=== PATIENT | female | born 1955 | race Asian ===

== ENCOUNTER 2018-06-17 05:55 | Day surgery (SDC) | payer OTHER ==
[2018-06-17] MEDS ORDERED: LACTATED RINGERS 1,000 ML IV ONE (06:41)
[2018-06-17] MEDS ORDERED: MIDAZOLAM 2 MG/2 ML VIAL IVP ONE (07:30)
[2018-06-17] MEDS ORDERED: fentaNYL 100 MCG/2 ML VIAL IVP ONE (07:30)
[2018-06-17 08:05] VITALS: BP 102/70
== END 2018-06-17 05:56 | disposition home or self-care (01) ==
LOC: SDS 05:55
PROVIDERS: ATTEND Surgery
PROC: 0DBN8ZZ Excision of Sigmoid Colon, Via Natural or Artificial Opening Endoscopic (ICD-10-PCS; principal; 2018-06-17 07:30)
DX: Z12.11 Encounter for screening for malignant neoplasm of colon (principal); D12.5 Benign neoplasm of sigmoid colon; K64.8 Other hemorrhoids; I10 Essential (primary) hypertension; E78.5 Hyperlipidemia, unspecified; E11.9 Type 2 diabetes mellitus without complications; F17.210 Nicotine dependence, cigarettes, uncomplicated
CPT/HCPCS: 45380; J7120

== ENCOUNTER 2019-08-13 11:31 | Emergency (ER) | payer OTHER, MEDICAID ==
[2019-08-13 12:00] LABS: BASOPHILS % (AUTO) 0.2 %; EOSINOPHILS % (AUTO) 0.1 %; HGB - HEMOGLOBIN 17.3 g/dL (12.0-16.0); LYMPHOCYTES # (AUTO) 3.5 10^3/uL (1.5-3.5); LYMPHOCYTES % (AUTO) 21.5 %; MEAN CORPUSCULAR HEMOGLOBIN 27.5 pg (27.0-31.0); MEAN CORPUSCULAR HGB CONC 34.2 g/dL (32.0-36.0); MEAN CORPUSCULAR VOLUME 80.6 fL (81.0-99.0); MEAN PLATELET VOLUME 9.3 fL (7.9-10.8); MONOCYTES # (AUTO) 0.9 10^3/uL (0.0-1.0); MONOCYTES % (AUTO) 5.5 %; NEUTROPHILS # (AUTO) 11.7 10^3/uL (1.5-6.6); NEUTROPHILS % (AUTO) 72.1 %; PLT - PLATELET COUNT 338 10^3/uL (130-450); RED BLOOD COUNT 6.28 10^6/uL (4.20-5.40); RED CELL DISTRIBUTION WIDTH 13.3 % (12.0-15.0); WHITE BLOOD COUNT 16.2 x10^3/uL (4.8-10.8)
[2019-08-13 12:12] LABS: ALBUMIN 5.2 g/dL (3.2-5.5); ALBUMIN/GLOBULIN RATIO 1.7 (1.0-2.2); BILIRUBIN,TOTAL 0.6 mg/dL (0.2-1.0); CALCIUM 9.7 mg/dL (8.5-10.3); CREATININE 0.8 mg/dL (0.4-1.0); TOTAL PROTEIN 8.3 g/dL (6.7-8.2)
[2019-08-13 12:17] LABS: BILIRUBIN,URINE NEGATIVE (NEGATIVE); GLUCOSE, URINE (UA) NEGATIVE (NEGATIVE); KETONES,URINE (UA) NEGATIVE (NEGATIVE); LEUKOCYTE ESTERASE, URINE SMALL (NEGATIVE); NITRITE,URINE NEGATIVE (NEGATIVE); OCCULT BLOOD,URINE TRACE-INTA (NEGATIVE); PH,URINE 5.5 PH (5.0-7.5); PROTEIN,URINE TRACE mg/dL (NEGATIVE); UROBILINOGEN,URINE 0.2 (NORMAL) E.U./dL (NORMAL)
[2019-08-13 12:18] LABS: CLARITY,URINE CLOUDY (CLEAR)
[2019-08-13 12:33] LABS: AMORPHOUS SEDIMENT,UR Rare /LPF; BACTERIA,URINE Many /HPF (None Seen); RBC,URINE 0-5 /HPF (0-5); SQUAMOUS EPITHELIAL CELL,UR MOD Squamous (<= Few)
[2019-08-13] MEDS ORDERED: IOVERSOL 320 100 ML VIAL IVP ONE ×2 (15:19→15:31)
--- NOTE | 2019-08-13 15:57 | CT Report ---
Reason: LLQ pain/tenderness, vomiting Procedure Date: 08/13/2019 Accession Number: [id number] / [id number] Procedure: CT - Abdomen/Pelvis W CPT Code: Final Report FULL RESULT: EXAM: CT ABDOMEN AND PELVIS EXAM DATE: 08/13/2019 03:30 PM. CLINICAL HISTORY: Left lower quadrant pain, tenderness and vomiting. COMPARISONS: None. TECHNIQUE: Routine helical CT imaging was performed through the abdomen and pelvis. IV contrast: 100 cc Optiray 320. Enteric contrast: No. Reconstructions: Coronal and sagittal. In accordance with CT protocol optimization, one or more of the following dose reduction techniques were utilized for this exam: automated exposure control, adjustment of mA and/or KV based on patient size, or use of iterative reconstructive technique. FINDINGS: Lung Bases: Unremarkable. Liver: The liver parenchyma is moderately hypodense diffusely suggesting fatty infiltration. No focal masses identified. Gallbladder/Bile Ducts: Unremarkable. Spleen: Normal. Pancreas: Normal. Adrenal Glands: Normal. Kidneys: No calculi or hydronephrosis evident. The renal pelvises are mildly prominent bilaterally but no hydroureter evident. No solid mass lesions identified. Peritoneal Cavity/Bowel: A small number of distal clonic diverticula present but no evidence for acute diverticulitis, colitis or other inflammatory process. Stool volume is within normal limits. No bowel obstruction evident. No free fluid or adenopathy. The appendix is well visualized and normal. Pelvic Organs: A large well-circumscribed lobulated mass with one small peripheral calcification present in the anterior mid to left pelvis measuring 10.6 x 7.1 x 9.2 cm. It contacts the anterior uterine fundus and could represent a large pedunculated subserosal fibroid. However, it also contacts the region of the left adnexa and adnexal lesion may also be considered. The right adnexa is unremarkable. Additionally, there is a partially calcified nodule within the anterior uterine fundus likely impinging upon the endometrium measuring 2.3 cm, likely degenerated submucosal fibroid. Vasculature: No aneurysms or other significant abnormality. Bones: No acute fracture or bone lesion evident. There is moderate disk space narrowing and degenerative disk disease at L5-S1 with a disk osteophyte complex extending asymmetrically into the left L5-S1 neuroforamen causing significant stenosis. Other: None. IMPRESSION: 1. No bowel obstruction, constipation or acute inflammatory process evident. Mild distal clonic diverticulosis noted. 2. Large lobulated mid to left pelvic mass, most likely a pedunculated subserosal fibroid, less likely left adnexal mass, measuring up to 10.6 cm. Further evaluation with pelvic ultrasound suggested. If it remains indeterminate, pelvic contrast MRI could also be considered. A normal left ovary is not well visualized. 3. Additional probable degenerated and calcified submucosal right fundal uterine fibroid noted. 4. Moderate hepatic fatty infiltration. 5. Moderate L5-S1 degenerative disk disease with moderate to severe left L5-S1 neuroforaminal stenosis. RADIA
--- NOTE | 2019-08-13 18:19 | Ultrasound Report ---
Reason: pelvic pain, R Procedure Date: 08/13/2019 Accession Number: [id number] / [id number] Procedure: US - Pelvic w/Transvag+Doppler Comp CPT Code: Final Report FULL RESULT: EXAM: PELVIC ULTRASOUND WITH DOPPLERS CLINICAL HISTORY: Right pelvic pain. COMPARISON: ABDOMEN/PELVIS W/ 08/13/2019 3:26 PM TECHNIQUE: Realtime transabdominal imaging performed to identify the uterus and adnexa and as an overview of other pelvic structures, followed by transvaginal imaging for better assessment of the endometrium and adnexa, with static image documentation. Color flow imaging and Doppler spectral analysis was performed to evaluate blood flow to the ovaries given pelvic pain and clinical concern for ovarian torsion. FINDINGS: Uterus: 9.4 x 3.4 x 4.9 cm, volume 81.5 cc. Anteverted position. There is an intramural calcified mass. Masses: Left fundal intramural mass with calcifications measuring 2.9 x 3.2 x 2.6 cm. Endometrium: 3.9 mm. Not well seen secondary to calcified uterine mass. Cervix: Unremarkable. Right Ovary: 2.1 x 1.5 x 2.0 cm, volume 3.1 cc. Not well seen. Arterial blood flow is visualized. PSV 3 cm/sec. RI 0.5. Adnexa are unremarkable. Left Ovary: A left ovary is not visualized secondary to a large left adnexal mass. There is a large mass which appears hypoechoic and difficult to penetrate with ultrasound. This mass measures 10.8 x 7.9 x 7.6 cm and volume of 337 cc. No overt vascularity within this mass. Free Fluid: None. Other: There is debris within the urinary bladder. IMPRESSION: 1. Very large left pelvic or adnexal mass measuring 10.8 cm in diameter. Differential diagnosis including solid ovarian neoplasm, mesenteric mass, with large pedunculated fibroid less likely but not excluded. 2. A left ovary is not visualized secondary to the large mass or is the large mass. 3. Calcified intramural uterine fibroid. 4. A structure in the right pelvis is visualized, probably representing a right ovary which is normal in size and contains arterial blood flow. Not well characterized. RADIA
[2019-08-13 19:24] VITALS: BP 156/81
--- NOTE | 2019-08-13 20:07 | ED Physician Documentation ---
PD HPI ABD PAIN - Stated complaint Stated Complaint: L SIDE ABD PX/SENT BY - Chief complaint Chief Complaint: Abd Pain - History obtained from History obtained from: Patient, Family - Additional information Additional information: Patient comes emergency department complaining of vomiting for the last approximately 1 day and left lower quadrant abdominal pain. Patient states her symptoms started last night. She cannot feel nauseated and began vomiting and then developed a pain in her left lower quadrant. Patient states that she was seen in clinic earlier today and told she should come to the emergency department for CT scan, due to concerns of her abdominal pain. Patient denies fevers or chills. No dysuria. No hematuria. No vaginal symptoms. Patient states that she does not have any chest symptoms. No shortness of breath or cough. No other complaints at this time. No one else has been sick at home. Review of Systems Ten Systems: 10 systems reviewed and negative Constitutional: reports: Reviewed and negative Eyes: reports: Reviewed and negative Ears: reports: Reviewed and negative Nose: reports: Reviewed and negative Throat: reports: Reviewed and negative Cardiac: reports: Reviewed and negative Respiratory: reports: Reviewed and negative GI: reports: Abdominal Pain, Nausea, Vomiting : reports: Reviewed and negative Skin: reports: Reviewed and negative Musculoskeletal: reports: Reviewed and negative Neurologic: reports: Reviewed and negative Psychiatric: reports: Reviewed and negative Endocrine: reports: Reviewed and negative Immunocompromised: reports: Reviewed and negative PD PAST MEDICAL HISTORY - Past Medical History Cardiovascular: Hypertension, High cholesterol Respiratory: None Endocrine/Autoimmune: None GI: None : None HEENT: None Psych: None Musculoskeletal: None Derm: Other - Past Surgical History 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 - Present Medications Home Medications: Ambulatory Orders Medication Instructions Recorded Confirmed Aspirin 81 mg PO DAILY 06/14/18 06/17/18 Metoprolol Succinate 100 mg PO DAILY 06/14/18 06/17/18 Fenofibrate 50 mg PO 08/13/19 Hydrocodone/Acetaminophen 1 - 2 each PO Q6H PRN #14 tablet 08/13/19 [Hydrocodon-Acetaminophen 5-325] Ondansetron Odt [Zofran] 4 mg TL Q6H PRN #10 tablet 08/13/19 amLODIPine [Norvasc] 5 mg PO ONCE 08/13/19 08/13/19 metFORMIN [Glucophage] 2,000 08/13/19 - Allergies Allergies/Adverse Reactions: Allergies Allergy/AdvReac Type Severity Reaction Status Date / Time No Known Drug Allergies Allergy Verified 08/13/19 11:40 PD ED PE NORMAL - Vitals Vital signs reviewed: Yes - General General: Alert and oriented X 3, No acute distress - HEENT HEENT: Atraumatic, PERRL, EOMI - Neck Neck: Supple, no meningeal sign - Cardiac Cardiac: RRR, No murmur - Respiratory Respiratory: No respiratory distress, Clear bilaterally - Abdomen Abdomen: Soft, Non distended, Other (Moderate tenderness left lower quadrant, no rebound or guarding.) - Derm Derm: Normal color, Warm and dry, No rash - Extremities Extremities: No deformity - Neuro Neuro: Alert and oriented X 3, 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, No motor deficit, No sensory deficit, Normal speech - Psych Psych: Normal mood, Normal affect Results - Vitals Vitals: Vital Signs - 24 hr 08/13/19 08/13/19 08/13/19 11:37 14:31 16:33 Temperature 36.7 C Heart Rate 125 H 110 H 112 H Respiratory 18 16 14 Rate Blood Pressure 137/88 H 150/88 H 133/74 H O2 Saturation 96 98 98 08/13/19 08/13/19 18:17 19:23 Temperature Heart Rate 116 H 114 H Respiratory 16 18 Rate Blood Pressure 120/69 156/81 H O2 Saturation 97 97 Oxygen O2 Source Room air - Labs Labs: Laboratory Tests 08/13/19 08/13/19 08/13/19 11:44 11:52 11:52 WBC 16.2 H RBC 6.28 H Hgb 17.3 H Hct 50.6 H MCV 80.6 L MCH 27.5 MCHC 34.2 RDW 13.3 Plt Count 338 MPV 9.3 Neut # (Auto) 11.7 H Lymph # (Auto) 3.5 [place] # (Auto) 0.9 Eos # (Auto) 0.0 Baso # (Auto) 0.0 Absolute Nucleated RBC 0.00 Nucleated RBC % 0.0 Sodium 136 Potassium 3.6 Chloride 101 Carbon Dioxide 21 Anion Gap 14.0 H BUN 19 Creatinine 0.8 Estimated GFR (MDRD) 73 L Glucose 182 H Calcium 9.7 Total Bilirubin 0.6 AST 22 ALT 25 Alkaline Phosphatase 48 Total Protein 8.3 H Albumin 5.2 Globulin 3.1 Albumin/Globulin Ratio 1.7 Lipase 33 Urine Color YELLOW Urine Clarity CLOUDY Urine pH 5.5 Ur Specific [place] >=1.030 H Urine Protein TRACE Urine Glucose (UA) NEGATIVE Urine Ketones NEGATIVE Urine Occult Blood TRACE-INTA Urine Nitrite NEGATIVE Urine Bilirubin NEGATIVE Urine Urobilinogen 0.2 (NORMAL) Ur Leukocyte Esterase SMALL H Urine RBC 0-5 Urine WBC 6-10 H Ur Squamous Epith Cells MOD Squamous H Amorphous Sediment Rare Urine Bacteria Many H Ur Microscopic Review INDICATED Urine Culture Comments NOT INDICATED - Rads (name of study) CT abdomen and pelvis Radiology: Final report received, EMP read indepedently, See rad report (Final radiologist impression: No bowel obstruction, constipation, or acute amatory process evident. Mild distal colonic diverticulosis noted. Large lobulated mid to left pelvic mass most likely a pedunculated subserosal fibroid, less likely left adnexal mass. Further evaluation with pelvic ultrasound suggested. Additional probable degenerated and calcified submucosal right fundal uterine fibroid noted. Moderate hepatic fatty infiltration. Moderate L5-S1 degenerative disc disease with moderate to severe left L5-S1 neuroforaminal stenosis.) Pelvic ultrasound Radiology: Final report received, See rad report (Final radiologist impression: Very large left pelvic or adnexal mass measuring 10.8 cm in diameter. Differential diagnosis including solid ovarian neoplasm, mesenteric mass, with large pedunculated fibroid less likely but not excluded. A left ovary is not visualized secondary to the large mass or is the large mass. Calcified intramural intrauterine fibroid. A structure in the right pelvis is visualized probably representing the right ovary which is normal in size and contains arterial blood flow. Not well characterized.) PD MEDICAL DECISION MAKING - ED course Complexity details: reviewed results, re-evaluated patient, considered differential, d/w patient, d/w family ED course: The patient was worked up with labs, and CT scan, and ultimately, pelvic ultrasound. She was found to have a large left-sided mass associated with either the adnexa or the uterus. It was unclear whether this was benign or malignant, based on somewhat conflicting CT and ultrasound radiologist Opinions in the reports. I discussed with the patient that at this point in time, I it is not known for sure whether this is a malignant mass, and as such, it is extremely important that she follows up in an expedited fashion with gynecology for further evaluation. I have referred her to the women's clinic in [place], and patient may see Dr. Bean or 1 of her associates. The patient is agreeable to this plan. No other urgent or emergent finding has been identified. I discussed with the patient that she may have 1 of the many viral gastroenteritis is that are going around. She Was likely has pain in the area of the left lower abdomen because of the vomiting putting traction on the mass. However, there is no evidence of a torsion of the mass at this point in time. I will give the patient Zofran and Vicodin to take at home. Departure - Departure Disposition: Home, Self Care Clinical Impression: Pelvic mass in female Condition: Fair Instructions: Abdominal Pain Follow-Up: Serina Bean MD [Physician No Access] - Prescriptions: Hydrocodone/Acetaminophen [Hydrocodon-Acetaminophen 5-325] 1 - 2 each PO Q6H PRN #14 tablet PRN Reason: pain Ondansetron Odt [Zofran] 4 mg TL Q6H PRN #10 tablet PRN Reason: Nausea / Vomiting Comments: Your ultrasound and CT scan show a large mass in your left pelvis. This could be a benign or cancerous tumor, but it needs to be followed up and further evaluated. The sooner you can follow-up with about this, the better. Please call first thing tomorrow to make an appointment to follow-up. Discharge Date/Time: 08/13/19 19:38
== END 2019-08-13 19:38 | disposition home or self-care (01) ==
LOC: ED 11:31
DX: R19.04 Left lower quadrant abdominal swelling, mass and lump (principal); R11.2 Nausea with vomiting, unspecified; D25.1 Intramural leiomyoma of uterus; K76.0 Fatty (change of) liver, not elsewhere classified; M51.37 Other intervertebral disc degeneration, lumbosacral region; M48.07 Spinal stenosis, lumbosacral region; I10 Essential (primary) hypertension; Z79.82 Long term (current) use of aspirin
CPT/HCPCS: 36415; 74177; 76830; 76856; 80053; 81001; 83690; 85025; 93975; 99284; Q9967; 81003; 87086

== ENCOUNTER 2020-02-11 08:00 | Outpatient (CLI) | payer OTHER, MEDICAID ==
[2020-02-11 12:22] LABS: BASOPHILS # (AUTO) 0.1 10^3/uL (0.0-0.1); BASOPHILS % (AUTO) 0.6 %; EOSINOPHILS # (AUTO) 0.2 10^3/uL (0.0-0.7); EOSINOPHILS % (AUTO) 1.6 %; HGB - HEMOGLOBIN 15.9 g/dL (12.0-16.0); LYMPHOCYTES # (AUTO) 3.6 10^3/uL (1.5-3.5); LYMPHOCYTES % (AUTO) 36.3 %; MEAN CORPUSCULAR HEMOGLOBIN 27.6 pg (27.0-31.0); MEAN CORPUSCULAR HGB CONC 33.1 g/dL (32.0-36.0); MEAN CORPUSCULAR VOLUME 83.2 fL (81.0-99.0); MEAN PLATELET VOLUME 9.6 fL (7.9-10.8); MONOCYTES # (AUTO) 0.8 10^3/uL (0.0-1.0); MONOCYTES % (AUTO) 7.5 %; NEUTROPHILS # (AUTO) 5.3 10^3/uL (1.5-6.6); NEUTROPHILS % (AUTO) 53.6 %; PLT - PLATELET COUNT 311 10^3/uL (130-450); RED BLOOD COUNT 5.77 10^6/uL (4.20-5.40); RED CELL DISTRIBUTION WIDTH 13.4 % (12.0-15.0)
[2020-02-11 12:37] LABS: HEMOGLOBIN A1c% 7.9 % (4.27-6.07)
[2020-02-11 13:04] LABS: CREATININE,URINE 75.9 mg/dL; MICROALBUM/CREATININE RATIO,UR 114.6 ug/mg (<30.0); MICROALBUMIN,URINE 8.7 mg/dL (0-300.0)
[2020-02-11 13:15] LABS: BUN - BLOOD UREA NITROGEN 22 mg/dL (6-20); CALCIUM 9.5 mg/dL (8.5-10.3); CARBON DIOXIDE - CO2 22 mmol/L (21-32); CHLORIDE 107 mmol/L (101-111); CHOL/HDL RATIO 3.9 (<4.4); CHOLESTEROL 203 mg/dL; CREATININE 0.7 mg/dL (0.4-1.0); GLUCOSE 123 mg/dL (70-100); HDL CHOLESTEROL 52 mg/dL; LDL CHOLESTEROL,CALCULATED 121 mg/dL; LDL/HDL RATIO 2.3 (<4.4); SODIUM 138 mmol/L (135-145); VLDL CHOLESTEROL 30 mg/dL
== END 2020-02-11 23:59 | disposition home or self-care (01) ==
LOC: LAB.WCP 08:00
PROVIDERS: ATTEND Family Medicine
DX: E11.9 Type 2 diabetes mellitus without complications (principal); I10 Essential (primary) hypertension
CPT/HCPCS: 36415; 80048; 80061; 82043; 82570; 83036; 83721; 84443; 85025

== ENCOUNTER 2020-05-14 08:00 | Outpatient (CLI) | payer OTHER, MEDICAID ==
[2020-05-14 13:25] LABS: BUN - BLOOD UREA NITROGEN 22 mg/dL (6-20); CALCIUM 9.8 mg/dL (8.5-10.3); CARBON DIOXIDE - CO2 22 mmol/L (21-32); CHLORIDE 105 mmol/L (101-111); CHOL/HDL RATIO 4.4 (<4.4); CHOLESTEROL 222 mg/dL; CREATININE 0.8 mg/dL (0.4-1.0); GLUCOSE 152 mg/dL (70-100); HDL CHOLESTEROL 51 mg/dL; LDL CHOLESTEROL,CALCULATED 141 mg/dL; LDL/HDL RATIO 2.8 (<4.4); SODIUM 139 mmol/L (135-145); VLDL CHOLESTEROL 30 mg/dL
[2020-05-14 13:32] LABS: CREATININE,URINE 142.2 mg/dL; MICROALBUM/CREATININE RATIO,UR 24.6 ug/mg (<30.0); MICROALBUMIN,URINE 3.5 mg/dL (0-300.0)
[2020-05-14 13:43] LABS: HEMOGLOBIN A1c% 7.2 % (4.27-6.07)
== END 2020-05-14 08:01 | disposition home or self-care (01) ==
LOC: LAB.WCP 08:00
PROVIDERS: ATTEND Physician Assistant
DX: E11.9 Type 2 diabetes mellitus without complications (principal); E78.5 Hyperlipidemia, unspecified
CPT/HCPCS: 36415; 80048; 80061; 82043; 82570; 83036; 83721

== ENCOUNTER 2020-07-29 10:19 | Outpatient (CLI) | payer OTHER, MEDICAID ==
--- NOTE | 2020-07-30 13:02 | Mammography Report ---
BILATERAL DIGITAL SCREENING MAMMOGRAM 3D/2D: 07/29/2020 CLINICAL: Baseline exam. Routine screening. No prior exams were available for comparison. The tissue of both breasts is predominantly fatty. No significant masses, calcifications, or other findings are seen in either breast. IMPRESSION: NEGATIVE There is no mammographic evidence of malignancy. A 1 year screening mammogram is recommended. This exam was interpreted at Station ID: [id number]. NOTE: For mammograms, a report in lay terms will be sent to the patient. Approximately 15% of breast malignancies will not be visualized mammographically. In the management of a palpable breast mass, a negative mammogram must not discourage biopsy of a clinically suspicious lesion. Electronically Signed By: Donnell Andersen acr/penrad:07/29/2020 13:09:28 ACR BI-RADS Category 1: Negative 3341F PARENCHYMAL PATTERN: (F) - The breast(s) demonstrate(s) diffuse fatty replacement. BI-RADS CATEGORY: (1) - 1 RECOMMENDATION: (ANNUAL) - Recommend routine annual screening mammography. [id number] 1 year screening LATERALITY: (B)
== END 2020-07-29 10:20 | disposition home or self-care (01) ==
LOC: DI.N 10:19
PROVIDERS: ATTEND Internal Medicine
DX: Z12.31 Encounter for screening mammogram for malignant neoplasm of breast (principal)

== ENCOUNTER 2020-10-08 08:00 | Outpatient (CLI) | payer OTHER, MEDICAID ==
[2020-10-08 13:16] LABS: ALBUMIN 4.6 g/dL (3.2-5.5); ALBUMIN/GLOBULIN RATIO 1.8 (1.0-2.2); ALKALINE PHOSPHATASE 63 IU/L (42-121); ALT ALANINE AMINOTRANSFERASE 23 IU/L (10-60); AST ASPARTATE AMINOTRANSFERASE 22 IU/L (10-42); BILIRUBIN,TOTAL 0.7 mg/dL (0.2-1.0); BUN - BLOOD UREA NITROGEN 18 mg/dL (6-20); CALCIUM 9.4 mg/dL (8.5-10.3); CARBON DIOXIDE - CO2 26 mmol/L (21-32); CHLORIDE 105 mmol/L (101-111); CHOL/HDL RATIO 2.7 (<4.4); CHOLESTEROL 166 mg/dL; CREATININE 0.7 mg/dL (0.4-1.0); GFR - MDRD 85 (>89); GLUCOSE 174 mg/dL (70-100); HDL CHOLESTEROL 62 mg/dL; LDL CHOLESTEROL,CALCULATED 84 mg/dL; LDL/HDL RATIO 1.4 (<4.4); POTASSIUM 4.3 mmol/L (3.5-5.0); SODIUM 141 mmol/L (135-145); TOTAL PROTEIN 7.2 g/dL (6.7-8.2); TRIGLYCERIDES 100 mg/dL; VLDL CHOLESTEROL 20 mg/dL
[2020-10-08 13:26] LABS: ESTIMATED AVERAGE GLUCOSE 180 mg/dL (70-100); HEMOGLOBIN A1c% 7.9 % (4.27-6.07)
== END 2020-10-08 23:59 | disposition home or self-care (01) ==
LOC: LAB.WCP 08:00
PROVIDERS: ATTEND Internal Medicine
DX: E11.9 Type 2 diabetes mellitus without complications (principal)
CPT/HCPCS: 36415; 80053; 80061; 83036; 83721

== ENCOUNTER 2020-10-14 08:00 | Outpatient (CLI) | payer OTHER, MEDICAID ==
[2020-10-14 17:54] LABS: ALBUMIN 4.7 g/dL (3.2-5.5); ALKALINE PHOSPHATASE 72 IU/L (42-121); ALT ALANINE AMINOTRANSFERASE 27 IU/L (10-60); AST ASPARTATE AMINOTRANSFERASE 26 IU/L (10-42); BILIRUBIN,TOTAL 0.7 mg/dL (0.2-1.0); TOTAL PROTEIN 7.8 g/dL (6.7-8.2)
[2020-10-14 18:47] LABS: BILIRUBIN,DIRECT < 0.1 mg/dL (0.1-0.5)
[2020-10-15 12:51] LABS: HEPATITIS A AB TOTAL(IMMUNITY) REACTIVE (NON-REACTIVE); HEPATITIS B CORE AB TOTAL NON-REACTIVE (NON-REACTIVE); HEPATITIS B SURFACE ANTIGEN NON-REACTIVE (NON-REACTIVE); HEPATITIS C ANTIBODY NON-REACTIVE (NON-REACTIVE)
== END 2020-10-14 23:59 | disposition home or self-care (01) ==
LOC: LAB.WCP 08:00
PROVIDERS: ATTEND Internal Medicine
DX: Z20.5 Contact with and (suspected) exposure to viral hepatitis (principal)
CPT/HCPCS: 36415; 80076; 86317; 86704; 86708; 86803; 87340

== ENCOUNTER 2021-01-21 07:39 | Outpatient (CLI) | payer OTHER, MEDICAID ==
[2021-01-21 12:19] LABS: CALCIUM 9.5 mg/dL (8.5-10.3); CREATININE 0.8 mg/dL (0.4-1.0); POTASSIUM 4.1 mmol/L (3.5-5.0)
[2021-01-21 12:26] LABS: ESTIMATED AVERAGE GLUCOSE 169 mg/dL (70-100); HEMOGLOBIN A1c% 7.5 % (4.27-6.07)
[2021-01-21 12:28] LABS: CREATININE,URINE 107.6 mg/dL; MICROALBUM/CREATININE RATIO,UR 35.3 ug/mg (<30.0); MICROALBUMIN,URINE 3.8 mg/dL (0-300.0)
== END 2021-01-21 23:59 | disposition home or self-care (01) ==
LOC: LAB.WCP 07:39
PROVIDERS: ATTEND Internal Medicine
DX: E11.9 Type 2 diabetes mellitus without complications (principal)
CPT/HCPCS: 36415; 80048; 82043; 82570; 83036

== ENCOUNTER 2021-05-13 08:00 | Outpatient (CLI) | payer OTHER, MEDICAID ==
[2021-05-13 12:58] LABS: ESTIMATED AVERAGE GLUCOSE 160 mg/dL (70-100); HEMOGLOBIN A1c% 7.2 % (4.27-6.07)
[2021-05-13 13:32] LABS: CALCIUM 9.4 mg/dL (8.5-10.3); CREATININE 0.8 mg/dL (0.4-1.0)
== END 2021-05-13 23:59 | disposition home or self-care (01) ==
LOC: LAB.WCP 08:00
PROVIDERS: ATTEND Internal Medicine
DX: E11.9 Type 2 diabetes mellitus without complications (principal)
CPT/HCPCS: 36415; 80048; 83036

== ENCOUNTER 2021-05-17 13:38 | Emergency (ER) | payer OTHER, MEDICAID ==
--- NOTE | 2021-05-17 15:47 | ED Physician Documentation ---
History of Present Illness - Stated complaint Stated Complaint: HEAD BUMP PX - Chief complaint Chief Complaint: Trauma Hd/Nk - Additonal information Additional information: 65-year-old female presents the emergency department for evaluation of headache, neck pain and low back pain. She reports being in her bathroom this morning and slipping on a towel. She fell backwards striking both her low back and her occiput on the sharp edge of the tub. She denies any loss of consciousness and is not anticoagulated. However since then she has had a fairly severe headache and has vomited once. Also endorsing low back pain without saddle anesthesia. No history of similar in the past. Denies vision changes. She did take some Tylenol with minimal relief of symptoms. Review of Systems Constitutional: denies: Fever, Chills Eyes: reports: Reviewed and negative Ears: reports: Reviewed and negative Nose: reports: Reviewed and negative Throat: reports: Reviewed and negative Cardiac: reports: Reviewed and negative Respiratory: reports: Reviewed and negative : reports: Reviewed and negative Musculoskeletal: reports: Neck pain, Back pain Neurologic: reports: Headache, Head injury. 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 - Present Medications Home Medications: Ambulatory Orders Medication Instructions Recorded Confirmed Aspirin 81 mg PO DAILY 06/14/18 05/17/21 Metoprolol Succinate 100 mg PO DAILY 06/14/18 05/17/21 Fenofibrate 50 mg PO DAILY 08/13/19 05/17/21 amLODIPine [Norvasc] 5 mg PO DAILY 08/13/19 05/17/21 Empagliflozin [Jardiance] 25 mg ORAL DAILY 05/17/21 05/17/21 Metformin HCl [Metformin ER 750 mg PO DAILY 05/17/21 05/17/21 Osmotic] Rosuvastatin Calcium [Crestor] 10 mg PO HS 05/17/21 05/17/21 - Allergies Allergies/Adverse Reactions: Allergies Allergy/AdvReac Type Severity Reaction Status Date / Time No Known Drug Allergies Allergy Verified 05/17/21 13:42 - Social History Does the pt smoke?: Yes Smoking Status: Current every day smoker Does the pt drink ETOH?: No Does the pt have substance abuse?: No - Immunizations Immunizations are current?: Yes PD ED PE NORMAL - General General: Alert and oriented X 3, No acute distress - HEENT HEENT: PERRL - Neck Neck: Supple, no meningeal sign - Cardiac Cardiac: RRR, No murmur - Respiratory Respiratory: Clear bilaterally - Abdomen Abdomen: Normal bowel sounds, Soft, Non tender, Non distended - Back Back: No: No spinal TTP (Lower midline lumbar spinous tenderness. Reduced forward flexion secondary to pain. antalgic gait. 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, No motor deficit, No sensory deficit, Normal speech, Other (Antalgic gait) Eye Opening: Spontaneous Motor: Obeys Commands Verbal: Oriented GCS Score: 15 - Psych Psych: Normal mood Results - Vitals Vitals: Vital Signs - 24 hr 05/17/21 05/17/21 05/17/21 13:42 16:30 17:00 Temperature 36 C L Heart Rate 90 73 71 Respiratory 18 13 12 Rate Blood Pressure 153/75 H 176/73 H 161/65 H O2 Saturation 98 98 97 Oxygen O2 Source Room air - Labs Labs: Laboratory Tests 05/17/21 05/17/21 16:47 16:47 WBC 14.0 H RBC 6.13 H Hgb 16.8 H Hct 51.5 H MCV 84.0 MCH 27.4 MCHC 32.6 RDW 14.2 Plt Count 306 MPV 8.8 Neut # (Auto) 9.9 H Lymph # (Auto) 3.1 [place] # (Auto) 0.8 Eos # (Auto) 0.1 Baso # (Auto) 0.1 Absolute Nucleated RBC 0.00 Nucleated RBC % 0.0 PT 10.9 INR 1.0 - Rads (name of study) CT head Radiology: Final report received (Small focus of extra-axial hemorrhage overlying the right anterior lateral frontal lobe suspected to be subdural. 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 Tobin ED attending [facility]) ED course: 65-year-old female who has a past medical history most significant for hypertension and diabetes presents the emergency department with headache as well as lower lumbar pain. She had a ground-level fall this morning in her bathroom in which she slipped on a tile. She fell backwards striking her low back and occiput on the ridge of the tub. She is not anticoagulated there were no loss of consciousness. She reports severe headache following the fall as well as vomiting once. She presents with no focal neuro deficits has normal gait and normal cerebellar exam. She does have a noted left occipital hematoma. Resultant CT did show a frontal subdural hematoma. Likely representing a coup contrecoup injury given the left-sided occipital hematoma. The subdural hematoma was discussed with on-call neurosurgeon at [facility] Dr. Candelario. He recommends repeat CT scan in 4 hours. If stable no further interventions are necessary. Unfortunately CT of the lower lumbar spine shows a comminuted displaced fracture of the sacrum. I initially discussed this case with our surgeon for orthopedics Dr. Sommer. He reports that this is something typically repaired operatively and we do not have the capacity to treat here. I discussed this with the transfer center at [facility]. This is an auto except. I have discussed this case with ED attending Dr. Aguilar. Patient will be sent via ground ALS. All images have been sent electronically. Respiratory Covid is pending. Patient is made aware of plans to transfer. Appropriate COBRA paperwork completed. Departure - Departure Disposition: 02 Transfer Acute Care Hosp Clinical Impression: SDH (subdural hematoma) Sacral fracture, closed Qualifiers: Encounter type: initial encounter Zone of sacrum fracture: unspecified portion of sacrum Qualified Code(s): S32.10XA - Unspecified fracture of sacrum, initial encounter for closed fracture
[2021-05-17] MEDS: HYDROmorphone 1 MG/ML CARPUJECT IM STA (15:58)
[2021-05-17] MEDS: HYDROmorphone 1 MG/ML CARPUJECT IVP STA (15:58)
--- NOTE | 2021-05-17 16:34 | CT Report ---
PROCEDURE: HEAD WO INDICATIONS: GLF; stuck head; + N/V TECHNIQUE: Noncontrast 4.5 mm thick angled axial sections acquired from the foramen magnum to the vertex. For r adiation dose reduction, the following was used: automated exposure control, adjustment of mA and/or kV according to patient size. COMPARISON: None. FINDINGS: Image quality: Excellent. CSF spaces: Basal cisterns are patent. No extra-axial fluid collections. Ventricles are normal in size and shape. Brain: Increased density within the subarachnoid spaces overlying the anterolateral right frontal lob e suspicious for subarachnoid hemorrhage or potentially small subdural hematoma. No evidence of other intracranial hemorrhage. No findings of mass effect or midline shift. Leavitt-white matter differentiat ion is maintained, without CT evidence of acute large territory infarct. Skull and face: Para-midline suboccipital scalp hematoma (series 4 image 9). Calvarium and visualized facial bones are intact, without suspicious lesions. Sinuses: Visualized sinuses and mastoids are clear. IMPRESSION: Small focus of extra-axial hemorrhage overlying the right anterolateral frontal lobe, suspected to be subdural given its contrecoup location. Left para-midline suboccipital scalp hematoma. Reviewed by: Colin Garcia MD on 05/17/2021 4:32 PM PST Approved by: Colin Garcia MD on 05/17/2021 4:32 PM PST Station ID: [id number]
--- NOTE | 2021-05-17 16:35 | CT Report ---
PROCEDURE: CERVICAL SPINE WO INDICATIONS: glf; neck pain TECHNIQUE: Noncontrast 3 mm thick sections acquired from the skull base to the T4 level. Sagittal and coronal r eformats were then constructed. For radiation dose reduction, the following was used: automated exp osure control, adjustment of mA and/or kV according to patient size. COMPARISON: None. FINDINGS: Image quality: Excellent. Bones: Normal configuration of the craniocervical junction. Straightening of usual cervical lordosis. Otherwise normal alignment without listhesis, subluxation, or dislocation. There is no evidence of f racture. Vertebral body heights maintained. Moderate multilevel multifactorial degenerative changes. No suspicious lytic or blastic osseous lesion. Soft tissues: Prevertebral soft tissues are normal in thickness. No paravertebral hematomas. No ap ical pneumothoraces. IMPRESSION: No CT evidence of acute traumatic cervical spine injury. Reviewed by: Colin Garcia MD on 05/17/2021 4:34 PM PST Approved by: Colin Garcia MD on 05/17/2021 4:34 PM PST Station ID: [id number]
--- NOTE | 2021-05-17 16:42 | CT Report ---
PROCEDURE: LUMBAR SPINE WO INDICATIONS: Low back head after GLF TECHNIQUE: Noncontrast 3 mm thick sections acquired from the T12 level to the sacrum. Sagittal and coronal refo rmats were constructed. For radiation dose reduction, the following was used: automated exposure co ntrol, adjustment of mA and/or kV according to patient size. COMPARISON: CT abdomen and pelvis 08/13/2019 FINDINGS: There is a sacral fracture with with an underlying expansile lesion producing scalloping of the S1, S 2, S3, and S4 vertebral bodies along with central canal expansion. This likely represents a sacral pe rineural cyst or collection of cysts, although this is not entirely definitive. The AP dimension of t he spinal canal has not significantly changed when compared with 08/13/2019 examination. The fracture is through the anterior S3 cortex and is both mildly displaced and mildly comminuted with cortical bu ckling. Remaining vertebral bodies are normal in height with no evidence of additional fracture. Alignment is normal. Mild degenerative changes in the lumbar spine. Presacral fluid and fat stranding are likely related to the fracture. 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 Orthopedic consultatio n is recommended in addition to a contrast-enhanced MRI of the sacrum. Reviewed by: Colin Garcia MD on 05/17/2021 4:41 PM PST Approved by: Colin Garcia MD on 05/17/2021 4:41 PM PST Station ID: [id number]
[2021-05-17 16:52] LABS: BASOPHILS # (AUTO) 0.1 10^3/uL (0.0-0.1); BASOPHILS % (AUTO) 0.4 %; EOSINOPHILS # (AUTO) 0.1 10^3/uL (0.0-0.7); EOSINOPHILS % (AUTO) 0.8 %; HCT - HEMATOCRIT 51.5 % (37.0-47.0); HGB - HEMOGLOBIN 16.8 g/dL (12.0-16.0); LYMPHOCYTES # (AUTO) 3.1 10^3/uL (1.5-3.5); LYMPHOCYTES % (AUTO) 22.1 %; MEAN CORPUSCULAR HEMOGLOBIN 27.4 pg (27.0-31.0); MEAN CORPUSCULAR HGB CONC 32.6 g/dL (32.0-36.0); MEAN PLATELET VOLUME 8.8 fL (7.9-10.8); MONOCYTES # (AUTO) 0.8 10^3/uL (0.0-1.0); MONOCYTES % (AUTO) 5.7 %; NEUTROPHILS # (AUTO) 9.9 10^3/uL (1.5-6.6); NEUTROPHILS % (AUTO) 70.6 %; PLT - PLATELET COUNT 306 10^3/uL (130-450); RED BLOOD COUNT 6.13 10^6/uL (4.20-5.40); RED CELL DISTRIBUTION WIDTH 14.2 % (12.0-15.0)
[2021-05-17 17:00] LABS: PT - PROTHROMBIN TIME 10.9 secs (9.9-12.6)
[2021-05-17 17:24] LABS: ALBUMIN 4.8 g/dL (3.2-5.5); ALBUMIN/GLOBULIN RATIO 1.5 (1.0-2.2); BILIRUBIN,TOTAL 0.7 mg/dL (0.2-1.0); CALCIUM 9.7 mg/dL (8.5-10.3); CREATININE 0.7 mg/dL (0.4-1.0); POTASSIUM 4.4 mmol/L (3.5-5.0)
[2021-05-17 18:04] VITALS: BP 152/81
[2021-05-17 18:21] LABS: B. PARAPERTUSSIS- RESP PCR PAN NOT DETECTED; B. PERTUSSIS- RESP PCR PANEL NOT DETECTED; C. PNEUMONIAE- RESP PCR PANEL NOT DETECTED; CORONAVIRUS 229E-RESP PCR NOT DETECTED; CORONAVIRUS HKU1-RESP PCR NOT DETECTED; CORONAVIRUS NL63-RESP PCR NOT DETECTED; CORONAVIRUS OC43-RESP PCR NOT DETECTED; HUMAN METAPNEUMOVIRUS NOT DETECTED; INFLUENZA A- RESP PCR PANEL NOT DETECTED; INFLUENZA B - RESP PCR PANEL NOT DETECTED; M. PNEUMONIAE- RESP PCR PANEL NOT DETECTED; PARAINFLUENZA VIRUS 1 NOT DETECTED; PARAINFLUENZA VIRUS 2 NOT DETECTED; PARAINFLUENZA VIRUS 3 NOT DETECTED; PARAINFLUENZA VIRUS 4 NOT DETECTED; RHINOVIRUS/ENTEROVIRUS NOT DETECTED; RSV- RESP PCR PANEL NOT DETECTED; SARS-CoV-2 -RESP PCR PANEL NOT DETECTED
== END 2021-05-17 18:15 | disposition short-term general hospital (02) ==
LOC: ED 13:38
DX: S06.5X0A Traumatic subdural hemorrhage without loss of consciousness, initial encounter (principal); S32.10XA Unspecified fracture of sacrum, initial encounter for closed fracture; S00.03XA Contusion of scalp, initial encounter; W01.198A Fall on same level from slipping, tripping and stumbling with subsequent striking against other object, initial encounter; Y92.002 Bathroom of unspecified non-institutional (private) residence as the place of occurrence of the external cause; Z20.822 Contact with and (suspected) exposure to COVID-19; I10 Essential (primary) hypertension; E11.9 Type 2 diabetes mellitus without complications; Z79.84 Long term (current) use of oral hypoglycemic drugs; Z79.82 Long term (current) use of aspirin; F17.200 Nicotine dependence, unspecified, uncomplicated
CPT/HCPCS: 0202U; 36415; 70450; 72125; 72131; 80053; 83690; 85025; 85610; 96372; 99284; 99285; J1170

== ENCOUNTER 2021-05-17 18:18 | Outpatient (CLI) | payer OTHER, MEDICAID | END 2021-05-17 18:19 | disposition short-term general hospital (02) | LOC: EMS 18:18 | PROVIDERS: ATTEND Registered Nurse | DX: S06.5X9A Traumatic subdural hemorrhage with loss of consciousness of unspecified duration, initial encounter (principal); S32.10XA Unspecified fracture of sacrum, initial encounter for closed fracture; W01.10XA Fall on same level from slipping, tripping and stumbling with subsequent striking against unspecified object, initial encounter; Y92.002 Bathroom of unspecified non-institutional (private) residence as the place of occurrence of the external cause | CPT/HCPCS: A0425; A0426 ==

== ENCOUNTER 2022-03-21 08:53 | Outpatient (CLI) | payer OTHER, MEDICAID ==
[2022-03-21 12:18] LABS: CALCIUM 9.7 mg/dL (8.5-10.3); CREATININE 0.8 mg/dL (0.4-1.0); POTASSIUM 4.5 mmol/L (3.5-5.0)
[2022-03-21 12:28] LABS: CREATININE,URINE 85.8 mg/dL; MICROALBUM/CREATININE RATIO,UR 19.8 ug/mg (<30.0); MICROALBUMIN,URINE 1.7 mg/dL (0-300.0)
[2022-03-21 12:39] LABS: ESTIMATED AVERAGE GLUCOSE 146 mg/dL (70-100); HEMOGLOBIN A1c% 6.7 % (4.27-6.07)
== END 2022-03-21 08:54 | disposition home or self-care (01) ==
LOC: LAB.N 08:53
PROVIDERS: ATTEND Internal Medicine
DX: E11.9 Type 2 diabetes mellitus without complications (principal)
CPT/HCPCS: 36415; 80048; 82043; 82570; 83036

== ENCOUNTER 2022-04-13 09:12 | Outpatient (CLI) | payer OTHER, MEDICAID ==
--- NOTE | 2022-04-14 15:39 | Mammography Report ---
BILATERAL DIGITAL SCREENING MAMMOGRAM 3D/2D: 04/13/2022 CLINICAL: Routine screening. Comparison is made to exam dated: 07/29/2020 mammogram - [facility]. Both breasts are heterogeneously dense, which may obscure small masses (category c / 51-75% glandular tissue). No significant masses, calcifications, or other findings are seen in either breast. There has been no significant interval change. IMPRESSION: NEGATIVE There is no mammographic evidence of malignancy. A 1 year screening mammogram is recommended. Based on the Tyrer Cuzick model (a risk assessment model) the patients lifetime risk is 7.8% and her 10 year risk is 3.6%. According to the ACR, ACS, and NCCN guidelines, an annual breast MRI exam [place] g with mammogram is recommended if the patients lifetime risk is 20% or greater. This exam was interpreted at Station ID: [id number]. NOTE: For mammograms, a report in lay terms will be sent to the patient. Approximately 15% of breast malignancies will not be visualized mammographically. In the management of a palpable breast mass, a negative mammogram must not discourage biopsy of a clinically suspicious lesion. Electronically Signed By: Nico rain/dipak:04/13/2022 15:52:11 ACR BI-RADS Category 1: Negative 3341F PARENCHYMAL PATTERN: (D) - The breast(s) demonstrate(s) heterogeneously dense fibroglandular pargregory almonte. BI-RADS CATEGORY: (1) - 1 RECOMMENDATION: (ANNUAL) - Recommend routine annual screening mammography. [id number] 1 year screening LATERALITY: (B)
== END 2022-04-13 09:13 | disposition home or self-care (01) ==
LOC: DI.N 09:12
PROVIDERS: ATTEND Internal Medicine
DX: Z12.31 Encounter for screening mammogram for malignant neoplasm of breast (principal)

== ENCOUNTER 2022-09-18 08:06 | Outpatient (CLI) | payer MEDICARE, OTHER ==
[2022-09-18 12:05] LABS: BASOPHILS % (AUTO) 0.5 %; EOSINOPHILS # (AUTO) 0.2 10^3/uL (0.0-0.7); EOSINOPHILS % (AUTO) 2.6 %; HCT - HEMATOCRIT 50.6 % (37.0-47.0); HGB - HEMOGLOBIN 16.2 g/dL (12.0-16.0); LYMPHOCYTES # (AUTO) 2.8 10^3/uL (1.5-3.5); LYMPHOCYTES % (AUTO) 35.1 %; MEAN CORPUSCULAR VOLUME 87.4 fL (81.0-99.0); MEAN PLATELET VOLUME 9.3 fL (7.9-10.8); MONOCYTES # (AUTO) 0.8 10^3/uL (0.0-1.0); MONOCYTES % (AUTO) 9.6 %; NEUTROPHILS # (AUTO) 4.1 10^3/uL (1.5-6.6); NEUTROPHILS % (AUTO) 51.9 %; PLT - PLATELET COUNT 240 10^3/uL (130-450); RED BLOOD COUNT 5.79 10^6/uL (4.20-5.40); WHITE BLOOD COUNT 7.9 x10^3/uL (4.8-10.8)
[2022-09-18 12:40] LABS: ESTIMATED AVERAGE GLUCOSE 143 mg/dL (70-100); HEMOGLOBIN A1c% 6.6 % (4.27-6.07)
[2022-09-18 13:08] LABS: ALBUMIN 4.5 g/dL (3.2-5.5); ALBUMIN/GLOBULIN RATIO 1.8 (1.0-2.2); ALKALINE PHOSPHATASE 52 IU/L (42-121); ALT ALANINE AMINOTRANSFERASE 18 IU/L (10-60); AST ASPARTATE AMINOTRANSFERASE 22 IU/L (10-42); BILIRUBIN,TOTAL 0.5 mg/dL (0.2-1.0); BUN - BLOOD UREA NITROGEN 20 mg/dL (6-20); CARBON DIOXIDE - CO2 25 mmol/L (21-32); CHLORIDE 110 mmol/L (101-111); CHOL/HDL RATIO 2.5 (<4.4); CHOLESTEROL 149 mg/dL; CREATININE 0.9 mg/dL (0.4-1.0); GFR - MDRD 63 (>89); GLUCOSE 133 mg/dL (70-100); HDL CHOLESTEROL 59 mg/dL; LDL CHOLESTEROL,CALCULATED 66 mg/dL; LDL/HDL RATIO 1.1 (<4.4); POTASSIUM 4.3 mmol/L (3.5-5.0); SODIUM 139 mmol/L (135-145); TRIGLYCERIDES 119 mg/dL; VLDL CHOLESTEROL 24 mg/dL
== END 2022-09-18 08:07 | disposition home or self-care (01) ==
LOC: LAB.N 08:06
PROVIDERS: ATTEND Internal Medicine
DX: E78.5 Hyperlipidemia, unspecified (principal); E11.9 Type 2 diabetes mellitus without complications; I10 Essential (primary) hypertension
CPT/HCPCS: 36415; 80053; 80061; 83036; 83721; 85025

== ENCOUNTER 2023-01-05 06:50 | Outpatient (CLI) | payer MEDICARE, OTHER ==
--- NOTE | 2023-01-05 13:12 | Ultrasound Report ---
PROCEDURE: Retroperitoneal INDICATIONS: STRAINS TO URINATE TECHNIQUE: Real-time scanning was performed of the retroperitoneal organs, with image documentation. COMPARISON: CT abdomen/pelvis 08/13/2019. FINDINGS: Kidneys: Kidneys are normal in size. Right kidney measures 9.9 cm long; left kidney measures 10.8 c m long. Right renal cortical thickness is 0.9 cm; left renal cortical thickness is 0.9 cm. No solid masses or nephrolithiasis. Mild bilateral hydronephrosis. Bladder: Pre-void bladder volume is 165 mL. Post-void residual is 77 mL. Pre-void images demonstra te no intraluminal masses or stones. On pre-void images, bilateral ureteral jets are noted with colo r Doppler interrogation. (Of note, ureteral jets may not be detectable in up to 25% of cases due to insufficient differences in specific gravity between ureteral and bladder urine). Miscellaneous: No free abdominal fluid. IMPRESSION: 1.Mild bilateral hydronephrosis, right greater than left. No nephrolithiasis. 2.Post void residual bladder volume is 77 mL. Reviewed by: Nico Kendrick MD on 01/05/2023 1:11 PM PDT Approved by: Nico Kendrick MD on 01/05/2023 1:11 PM PDT Station ID: [id number]
== END 2023-01-05 06:51 | disposition home or self-care (01) ==
LOC: DI 06:50
PROVIDERS: ATTEND Physician Assistant Medical
DX: N13.30 Unspecified hydronephrosis (principal)

== ENCOUNTER 2023-01-10 08:00 | Outpatient (CLI) | payer MEDICARE, OTHER ==
[2023-01-10 12:50] LABS: CALCIUM 9.4 mg/dL (8.5-10.3); CREATININE 0.8 mg/dL (0.6-1.3); POTASSIUM 4.3 mmol/L (3.5-4.5)
[2023-01-10 12:54] LABS: ESTIMATED AVERAGE GLUCOSE 148 mg/dL (70-100); HEMOGLOBIN A1c% 6.8 % (4.27-6.07)
[2023-01-10 13:34] LABS: CREATININE,URINE 79.7 mg/dL; MICROALBUM/CREATININE RATIO,UR 36.4 ug/mg (<30.0); MICROALBUMIN,URINE 2.9 mg/dL
== END 2023-01-10 23:59 | disposition home or self-care (01) ==
LOC: LAB.N 08:00
PROVIDERS: ATTEND Physician Assistant Medical
DX: E11.9 Type 2 diabetes mellitus without complications (principal); R39.16 Straining to void
CPT/HCPCS: 36415; 80048; 82043; 82565; 82570; 83036; 84520

== ENCOUNTER 2023-01-23 12:35 | Outpatient (CLI) | payer MEDICARE, OTHER ==
[2023-01-23] MEDS ORDERED: iohexoL-300 100 ML VIAL IVP ONE (13:29)
--- NOTE | 2023-01-23 16:52 | CT Report ---
PROCEDURE: IVP INDICATIONS: STRAINS TO URINATE/LABS CONTRAST: 140ml omni 300 TECHNIQUE: After the administration of intravenous contrast, 5 mm thick sections acquired from the diaphragms to the symphysis. 5 mm thick coronal and sagittal reformats were acquired. For radiation dose reducti on, the following was used: automated exposure control, adjustment of mA and/or kV according to denise ent size. COMPARISON: None. FINDINGS: Image quality: Good Lower chest: Basal scarring/atelectasis. Solid organs: Hepatic steatosis, possible wedge-shaped area of fatty sparing in the periphery of segm ent 5. No overtly suspicious liver lesion. Consider follow-up if the patient has a history of maligna ncy. Gallbladder is unremarkable. No pathologic biliary ductal dilation or pancreatic ductal dilation. No splenomegaly. No adrenal nodules. Punctate nonobstructing left interpolar region calculus. Moderate right pelvocaliectasis, with normal diameter ureter. No solid renal mass. No ureter filling defects. Vessels and lymph nodes: Atherosclerotic calcifications. The main portal vein is patent. No pathologi c lymph nodes by size criteria. Bowel and peritoneum: No evidence of small bowel obstruction, drainable abscess, or pathologic ascite s. Body wall: Unremarkable Pelvis: Bladder is mildly distended. There is moderate air within the bladder. Uterus is absent. Ques tionable urethral diverticulum (). Bones: No acute or suspicious osseous finding. Degenerative changes are present. IMPRESSION: Questionable urethral diverticulum. This could be further evaluated on MRI if clinical symptoms are c oncordant. No solid renal mass. Moderate right pelvocaliectasis with normal diameter ureter, probably chronic UP J obstruction. Tiny nonobstructing left interpolar region stone. Moderate degree of bladder air, correlate with any history of instrumentation. The lower tracts could also be further evaluated with cystoscopy. Other findings as above. Reviewed by: Jay Fernandez MD on 01/23/2023 4:50 PM PDT Approved by: Jay Fernandez MD on 01/23/2023 4:50 PM PDT Station ID: [id number]
== END 2023-01-23 12:36 | disposition home or self-care (01) ==
LOC: DI 12:35
PROVIDERS: ATTEND Physician Assistant Medical
DX: R39.16 Straining to void (principal); N36.1 Urethral diverticulum; N28.89 Other specified disorders of kidney and ureter; N20.0 Calculus of kidney; K76.0 Fatty (change of) liver, not elsewhere classified
CPT/HCPCS: 74178; Q9967

== ENCOUNTER 2023-05-07 08:20 | Outpatient (CLI) | payer MEDICARE, OTHER ==
[2023-05-07 12:11] LABS: MICROALBUM/CREATININE RATIO,UR 19.4 ug/mg (<30.0); MICROALBUMIN,URINE 1.4 mg/dL
[2023-05-07 12:47] LABS: ESTIMATED AVERAGE GLUCOSE 131 mg/dL (70-100); HEMOGLOBIN A1c% 6.2 % (4.27-6.07)
[2023-05-07 12:51] LABS: CALCIUM 9.6 mg/dL (8.5-10.3); CREATININE 0.8 mg/dL (0.6-1.3); POTASSIUM 4.4 mmol/L (3.5-4.5)
== END 2023-05-07 08:21 | disposition home or self-care (01) ==
LOC: LAB.N 08:20
PROVIDERS: ATTEND Internal Medicine
DX: E11.9 Type 2 diabetes mellitus without complications (principal)
CPT/HCPCS: 36415; 80048; 82043; 82570; 83036

== ENCOUNTER 2023-06-27 09:23 | Outpatient (CLI) | payer MEDICARE, OTHER ==
--- NOTE | 2023-06-27 10:49 | DEXA Report ---
PROCEDURE: Dexa Spine and/or Hip INDICATIONS: POST MENOPAUSAL TECHNIQUE: Dual energy x-ray absorptiometry (DXA) was performed on a BackType System. Regions measur ed are the AP Spine, femoral neck, and if needed forearm. COMPARISON: None FINDINGS: Lumbar Spine: Bone Mineral Density 0.928 g/cm/cm,T score -2.1. Left Femoral Neck: Bone Mineral Density 0.846 g/cm/cm, T score -1.4. Left Hip: Bone Mineral Density 0.979 g/cm/cm,T score -0.2. (T score greater or equal to -1.0: NORMAL) (T score from -1.1 to -2.4: OSTEOPENIA) (T score less than or equal to -2.5 to: OSTEOPOROSIS) Impression: By WHO criteria, this patient has low bone density (osteopenia). Patients with diagnosis of osteoporosis or osteopenia should have regular bone mineral density assess ment. For those eligible for Medicare, routine testing is allowed once every 2 years. Testing frequ ency can be increased for patients who have rapidly progressing disease or for those who are receivin g medical therapy to restore bone mass. Reviewed by: Lauro Benson MD on 06/27/2023 10:48 AM PST Approved by: Lauro Benson MD on 06/27/2023 10:48 AM PST Station ID: [id number]
== END 2023-06-27 09:24 | disposition home or self-care (01) ==
LOC: DI 09:23
PROVIDERS: ATTEND Internal Medicine
DX: Z78.0 Asymptomatic menopausal state (principal); M85.89 Other specified disorders of bone density and structure, multiple sites

== ENCOUNTER 2023-06-27 09:24 | Outpatient (CLI) | payer MEDICARE, OTHER ==
--- NOTE | 2023-06-28 09:19 | Mammography Report ---
BILATERAL DIGITAL SCREENING MAMMOGRAM 3D/2D: 06/27/2023 CLINICAL: Routine screening. Comparison is made to exams dated: 04/13/2022 mammogram and 07/29/2020 mammogram - [facility]. Both breasts are heterogeneously dense, which may obscure small masses (category c / 51-75% glandular tissue). No significant masses, calcifications, or other findings are seen in either breast. There has been no significant interval change. IMPRESSION: NEGATIVE There is no mammographic evidence of malignancy. A 1 year screening mammogram is recommended. Based on the Tyrer Cuzick model (a risk assessment model) the patient's lifetime risk is 6.8% and her 10 year risk is 3.3%. According to the ACR, ACS, and NCCN guidelines, an annual breast MRI exam [place] g with mammogram is recommended if the patients lifetime risk is 20% or greater. This exam was interpreted at Station ID: [id number]. NOTE: For mammograms, a report in lay terms will be sent to the patient. Approximately 15% of breast malignancies will not be visualized mammographically. In the management of a palpable breast mass, a negative mammogram must not discourage biopsy of a clinically suspicious lesion. Electronically Signed By: Bienvenido castle/penrad:06/27/2023 16:54:01 ACR BI-RADS Category 1: Negative 3341F PARENCHYMAL PATTERN: (D) - The breast(s) demonstrate(s) heterogeneously dense fibroglandular horace almonte. BI-RADS CATEGORY: (1) - 1 Mammogram [id number] 1 year screening LATERALITY: (B)
== END 2023-06-27 09:25 | disposition home or self-care (01) ==
LOC: DI 09:24
PROVIDERS: ATTEND Internal Medicine
DX: Z12.31 Encounter for screening mammogram for malignant neoplasm of breast (principal); R92.333 Mammographic heterogeneous density, bilateral breasts

== ENCOUNTER 2023-12-05 07:44 | Outpatient (CLI) | payer MEDICARE, OTHER ==
[2023-12-05 12:27] LABS: BASOPHILS % (AUTO) 0.4 %; EOSINOPHILS # (AUTO) 0.2 10^3/uL (0.0-0.7); EOSINOPHILS % (AUTO) 1.9 %; HCT - HEMATOCRIT 50.2 % (37.0-47.0); HGB - HEMOGLOBIN 16.1 g/dL (12.0-16.0); LYMPHOCYTES # (AUTO) 2.5 10^3/uL (1.5-3.5); LYMPHOCYTES % (AUTO) 26.8 %; MEAN CORPUSCULAR HEMOGLOBIN 27.4 pg (27.0-31.0); MEAN CORPUSCULAR HGB CONC 32.1 g/dL (32.0-36.0); MEAN CORPUSCULAR VOLUME 85.4 fL (81.0-99.0); MEAN PLATELET VOLUME 9.5 fL (7.9-10.8); MONOCYTES # (AUTO) 0.8 10^3/uL (0.0-1.0); NEUTROPHILS # (AUTO) 5.7 10^3/uL (1.5-6.6); NEUTROPHILS % (AUTO) 61.6 %; PLT - PLATELET COUNT 230 10^3/uL (130-450); RED BLOOD COUNT 5.88 10^6/uL (4.20-5.40); RED CELL DISTRIBUTION WIDTH 14.6 % (12.0-15.0); WHITE BLOOD COUNT 9.3 x10^3/uL (4.8-10.8)
[2023-12-05 12:49] LABS: ALBUMIN 4.5 g/dL (3.2-5.5); ALBUMIN/GLOBULIN RATIO 1.9 (1.0-2.2); ALKALINE PHOSPHATASE 46 IU/L (42-121); ALT ALANINE AMINOTRANSFERASE 13 IU/L (10-60); AST ASPARTATE AMINOTRANSFERASE 15 IU/L (10-42); BILIRUBIN,TOTAL 0.5 mg/dL (0.2-1.0); BUN - BLOOD UREA NITROGEN 25 mg/dL (6-20); CALCIUM 9.7 mg/dL (8.5-10.3); CARBON DIOXIDE - CO2 25 mmol/L (21-32); CHLORIDE 108 mmol/L (101-111); CHOL/HDL RATIO 2.5 (<4.4); CHOLESTEROL 152 mg/dL; GFR - MDRD 55 (>89); GLUCOSE 131 mg/dL (74-104); HDL CHOLESTEROL 62 mg/dL; LDL CHOLESTEROL,CALCULATED 66 mg/dL; LDL/HDL RATIO 1.1 (<4.4); POTASSIUM 4.5 mmol/L (3.5-4.5); SODIUM 139 mmol/L (135-145); TOTAL PROTEIN 6.9 g/dL (6.4-8.9); TRIGLYCERIDES 120 mg/dL (48-352); VLDL CHOLESTEROL 24 mg/dL
[2023-12-05 13:00] LABS: CREATININE,URINE 73.4 mg/dL; MICROALBUM/CREATININE RATIO,UR 69.5 ug/mg (<30.0); MICROALBUMIN,URINE 5.1 mg/dL
[2023-12-05 13:11] LABS: ESTIMATED AVERAGE GLUCOSE 140 mg/dL (70-100); HEMOGLOBIN A1c% 6.5 % (4.27-6.07)
== END 2023-12-05 07:45 | disposition home or self-care (01) ==
LOC: LAB.N 07:44
PROVIDERS: ATTEND Internal Medicine
DX: I10 Essential (primary) hypertension (principal); E78.5 Hyperlipidemia, unspecified; E11.9 Type 2 diabetes mellitus without complications
CPT/HCPCS: 36415; 80053; 80061; 82043; 82570; 83036; 83721; 85025

== ENCOUNTER 2024-01-23 08:15 | Outpatient (CLI) | payer MEDICARE, OTHER ==
[2024-01-23 12:19] LABS: CALCIUM 9.8 mg/dL (8.5-10.3); CREATININE 0.9 mg/dL (0.6-1.3); POTASSIUM 4.5 mmol/L (3.5-4.5)
== END 2024-01-23 08:16 | disposition home or self-care (01) ==
LOC: LAB.N 08:15
PROVIDERS: ATTEND Internal Medicine
DX: I10 Essential (primary) hypertension (principal)
CPT/HCPCS: 36415; 80048